=== PATIENT | female | born 1955 | race African-American/Black ===

== ENCOUNTER 2016-09-10 07:00 | Emergency (ER) | payer OTHER ==
[~2016-09-10] VITALS: Ht 162.6 cm; Wt 104.3 kg
[~2016-09-10 07:00] MED LIST: ACETAMINOPHEN-1 EAC1 ORAL; ALPRAZOLAM0.25 MG ORAL; AMLODIPINE BESY10 MG ORAL; ASPIRIN81 MG ORAL; ATORVASTATIN CA40 MG ORAL; CHOLESTYRAMINE378 GM PO; COLACE100 MG ORAL; CYCLOBENZAPRINE10 MG ORAL; GABAPENTIN300 MG ORAL; KLONOPIN0.5 MG ORAL; KLONOPIN1 MG ORAL; LEXAPRO20 MG ORAL; LIPITOR10 MG ORAL; LOSARTAN POTASS25 MG ORAL; LOSARTAN POTASS50 MG ORAL; METFORMIN HCL500 M1 ORAL; METOPROLOL TART50 M1; NAPROSYN250 M1 ORAL; NKM; NORCO 5-325 TA1 EACH ORAL; NORVASC5 MG ORAL; OMEPRAZOLE40 M1 ORAL; TRAZODONE HCL150 MG ORAL; ZOFRAN4 M1 ORAL
[2016-09-10 07:11] VITALS: BP 157/72
[2016-09-10] MEDS ORDERED: TRAMADOL HCL50 MG ORAL (07:20)
[2016-09-10] MEDS ORDERED: Norco 5mg/325mg tab ORAL ONE (07:30)
[2016-09-10 07:50] VITALS: BP 145/75
--- NOTE | 2016-09-10 08:34 | Emergency Room Report ---
History of Present Illness General Chief Complaint: Pain Source: Patient Present Illness HPI 60-year-old female presents to ED for bilateral leg pain. States this is chronic leg pain which she's had for many years now. Patient states her pain medications at home are not helping. Pain is throbbing, 10 out of 10, radiating down both legs. No other aggravating relieving factors. States the pain is so bad she cannot walk today so she called 911. Denies any other associated symptoms Allergies: Coded Allergies: IBUPROFEN (Unverified Allergy, Unknown, 04/27/14) Mushroom (Verified Allergy, Unknown, 10/15/14) PENICILLINS (Unverified Allergy, Unknown, 04/27/14) Uncoded Allergies: PENICILLIN (Allergy, Unknown, 08/24/15) Patient History Past Medical History: none, DM, HTN, CVA/TIA Past Surgical History: none Pertinent Family History: none Social History: Denies: alcohol use, drug use, smoking Now: No Immunizations: UTD Reviewed Nursing Documentation: PMH: Agreed, PSxH: Agreed Nursing Documentation-PMH Hx Hypertension: Yes Hx Pacemaker: No - HYPERLIPIDEMIA Hx Asthma: No Hx COPD: No Hx Diabetes: Yes Hx Cancer: No Hx Gastrointestinal Problems: Yes Hx Dialysis: No Hx Neurological Problems: Yes Hx Cerebrovascular Accident: Yes - TIA Hx Seizures: No Hx Headaches: Yes Hx Numbness: Yes Hx Weakness: Yes Review of Systems All Other Systems: negative except mentioned in HPI Physical Exam Vital Signs Date Time Temp Pulse Resp B/P Pulse Ox O2 Delivery O2 Flow Rate FiO2 09/10/16 06:55 97.2 101 15 157/72 97 Room Air Sp02 EP Interpretation: reviewed, normal General Appearance: no apparent distress, alert, GCS 15, non-toxic, obese Head: normocephalic Eyes: bilateral eye PERRL, bilateral eye normal inspection ENT: normal ENT inspection Neck: normal inspection Respiratory: normal inspection Cardiovascular #1: normal inspection Gastrointestinal: normal inspection Rectal: deferred Genitourinary: no CVA tenderness Musculoskeletal: tender - bilateral knees. full ROM noted. no bruising/ deformity Neurologic: alert, oriented x3, responsive, motor strength/tone normal, sensory intact, speech normal Psychiatric: normal inspection Skin: normal inspection Lymphatic: normal inspection Medical Decision Making Diagnostic Impression: Primary Impression: Chronic pain Qualified Codes: G89.29 - Other chronic pain ER Course 60-year-old female presents ED complaining of bilateral knee and leg pain. Differential-opioid dependence, chronic pain, arthritis Patient placed on stretcher. After initial history and physical I reviewed EMR ; patient has multiple visits to this ER for pain-related complaints. I reviewed [facility] patient does have multiple narcotic prescriptions but none filled in last 2 months. Agreed to provide patient with medication here-given 2 [place] Patient will be prescribed short course of tramadol however explaining to the patient that the ER is not an appropriate place to get chronic pain medications. Patient stated that she should followup with PMD/pain management Diagnoses-chronic pain Stable and discharged home with prescription for tramadol. Followup with PMD. Return to ED if symptoms recur worse Last Vital Signs Date Time Temp Pulse Resp B/P Pulse Ox O2 Delivery O2 Flow Rate FiO2 09/10/16 07:50 94 16 145/75 98 Room Air 09/10/16 07:11 97.2 Status: improved Disposition: HOME, SELF-CARE Condition: Stable Scripts Tramadol Hcl* (ULTRAM*) 50 Mg Tablet 50 MG ORAL Q6H Y for For Pain, #20 TAB 0 Refills Prov: CORIE MULLER M.D. 09/10/16 Referrals: [facility] (PCP) Patient Instructions: Chronic Pain CORIE MULLER M.D. Sep 10, 2016 08:34
== END 2016-09-10 08:59 | disposition home or self-care (01) ==
LOC: EDBD 07:00 → EMR 07:20
DX: G89.29 Other chronic pain (principal); M79.604 Pain in right leg; Z88.6 Allergy status to analgesic agent; Z88.0 Allergy status to penicillin; Z91.018 Allergy to other foods; I10 Essential (primary) hypertension; E11.9 Type 2 diabetes mellitus without complications; Z86.73 Personal history of transient ischemic attack (TIA), and cerebral infarction without residual deficits
CPT/HCPCS: 99283

== ENCOUNTER 2017-06-01 09:20 | Emergency (ER) | payer OTHER ==
[~2017-06-01] VITALS: Ht 162.6 cm; Wt 81.6 kg
[~2017-06-01 09:20] MED LIST changes: +TRAMADOL HCL50 MG ORAL
[2017-06-01] MEDS ORDERED: Sodium Chloride 500ML 500 ML IV ONE (09:25)
[2017-06-01] MEDS ORDERED: Morphine Sulfate 4mg/ml Inj IVP ONE (09:30)
[2017-06-01] MEDS ORDERED: Aspirin Baby 81mg ORAL ONE (09:30)
[2017-06-01] MEDS ORDERED: NORVASC2.5 MG ORAL (09:36)
[2017-06-01] MEDS ORDERED: NEURONTIN300 MG ORAL (09:37)
[2017-06-01] MEDS ORDERED: PREDNISOLO15 MG/5 M1 ORAL (09:37)
[2017-06-01] MEDS ORDERED: PAXIL30 MG ORAL (09:38)
[2017-06-01] MEDS ORDERED: TRAMADOL HCL100 M2 ORAL (09:38)
[2017-06-01] MEDS ORDERED: ATORVASTATIN CA10 MG ORAL (09:39)
[2017-06-01] MEDS ORDERED: AMOXIL250 MG ORAL (09:39)
[2017-06-01 09:53] LABS: BASOPHILS % (AUTO) 1.2 % (0.0-2.0); EOSINOPHILS % (AUTO) 1.2 % (0.0-3.0); LYMPHOCYTES % (AUTO) 20.9 % (20.0-45.0); MEAN CORPUSCULAR HEMOGLOBIN 27.8 PG (27.0-31.0); MEAN CORPUSCULAR HGB CONC 31.9 G/DL (32.0-36.0); MEAN CORPUSCULAR VOLUME 87 FL (80-99); MEAN PLATELET VOLUME 6.9 FL (6.5-10.1); MONOCYTES % (AUTO) 6.5 % (1.0-10.0); NEUTROPHILS % (AUTO) 70.2 % (45.0-75.0); PLATELET COUNT 282 K/UL (150-450); RED BLOOD COUNT 4.84 M/UL (4.20-5.40); RED CELL DISTRIBUTION WIDTH 13.7 % (11.6-14.8)
--- NOTE | 2017-06-01 09:54 | Emergency Room Report ---
History of Present Illness General Chief Complaint: Chest Pain Source: Patient, EMS Present Illness HPI Patient presents with complaints of midsternal chest pain Ongoing since this morning Patient denies any exacerbating or alleviating factors Denies any shortness of breath Reports that her pain came on suddenly Denies any pleurisy pain is 6/10 heaviness denies any radiation to the back Patient has gout of both knees Allergies: Coded Allergies: ESTRADIOL (Unverified Allergy, Unknown, 06/01/17) IBUPROFEN (Unverified Allergy, Unknown, 04/27/14) Mushroom (Verified Allergy, Unknown, 10/15/14) PENICILLINS (Unverified Allergy, Unknown, 04/27/14) Uncoded Allergies: PENICILLIN (Allergy, Unknown, 08/24/15) Patient History Past Medical History: see triage record Pertinent Family History: none Reviewed Nursing Documentation: PMH: Agreed, PSxH: Agreed Nursing Documentation-PMH Hx Hypertension: Yes Hx Pacemaker: No - HYPERLIPIDEMIA Hx Asthma: No Hx COPD: No Hx Diabetes: Yes Hx Cancer: No Hx Gastrointestinal Problems: Yes Hx Dialysis: No Hx Neurological Problems: Yes Hx Cerebrovascular Accident: Yes - TIA Hx Seizures: No Hx Headaches: Yes Hx Numbness: Yes Hx Weakness: Yes Review of Systems All Other Systems: negative except mentioned in HPI Physical Exam Vital Signs Date Time Temp Pulse Resp B/P (MAP) Pulse Ox O2 Delivery O2 Flow Rate FiO2 06/01/17 09:17 Room Air Sp02 EP Interpretation: reviewed, normal General Appearance: mild distress - in pain Head: normocephalic, atraumatic Eyes: bilateral eye PERRL, bilateral eye EOMI ENT: hearing grossly normal, normal pharynx, TMs + canals normal, uvula midline Neck: full range of motion, supple, no meningismus, no bony tend Respiratory: lungs clear, normal breath sounds, no rhonchi, no respiratory distress, no retraction, no accessory muscle use Cardiovascular #1: normal peripheral pulses, no edema, no gallop, no JVD, no murmur, tachycardia Gastrointestinal: normal bowel sounds, non tender, soft, no mass, no organomegaly, non-distended, no guarding, no hernia, no pulsatile mass, no rebound Genitourinary: no CVA tenderness Musculoskeletal: other - Chronic pain of bilateral knees pain with any movement Neurologic: oriented x3, responsive, member service specialist III-XII nml as tested, sensory intact Psychiatric: mood/affect normal Skin: normal color, no rash, warm/dry, palpation normal Lymphatic: normal inspection, no adenopathy Medical Decision Making Diagnostic Impression: Primary Impression: ACS (acute coronary syndrome) ER Course Patient is a fairly complex patient with multiple differential to consideration including but not limited to cardiac cardiopulmonary and vascular emergencies Patient's blood work appears appropriate pain has done better no obvious signs of ST elevation and the patient is stable for close followup secondary to insurance purposes patient was transferred Labs Test 06/01/17 09:38 White Blood Count 12.0 K/UL (4.8-10.8) Red Blood Count 4.84 M/UL (4.20-5.40) Hemoglobin 13.4 G/DL (12.0-16.0) Hematocrit 42.2 % (37.0-47.0) Mean Corpuscular Volume 87 FL (80-99) Mean Corpuscular Hemoglobin 27.8 PG (27.0-31.0) Mean Corpuscular Hemoglobin Concent 31.9 G/DL (32.0-36.0) Red Cell Distribution Width 13.7 % (11.6-14.8) Platelet Count 282 K/UL (150-450) Mean Platelet Volume 6.9 FL (6.5-10.1) Neutrophils (%) (Auto) 70.2 % (45.0-75.0) Lymphocytes (%) (Auto) 20.9 % (20.0-45.0) Monocytes (%) (Auto) 6.5 % (1.0-10.0) Eosinophils (%) (Auto) 1.2 % (0.0-3.0) Basophils (%) (Auto) 1.2 % (0.0-2.0) Sodium Level 142 MMOL/L (136-145) Potassium Level 3.3 MMOL/L (3.5-5.1) Chloride Level 103 MMOL/L (98-107) Carbon Dioxide Level 27 MMOL/L (21-32) Anion Gap 12 mmol/L (5-15) Blood Urea Nitrogen 10 mg/dL (7-18) Creatinine 1.0 MG/DL (0.55-1.30) Estimat Glomerular Filtration Rate > 60 mL/min (>60) Glucose Level 151 MG/DL (74-106) Calcium Level 9.4 MG/DL (8.5-10.1) Total Bilirubin 0.4 MG/DL (0.2-1.0) Aspartate Amino Transf (AST/SGOT) 14 U/L (15-37) Alanine Aminotransferase (ALT/SGPT) 15 U/L (12-78) Alkaline Phosphatase 91 U/L (46-116) Total Creatine Kinase 38 U/L (26-308) Creatine Kinase MB 1.3 NG/ML (0.0-3.6) Creatine Kinase MB Relative Index 3.4 Troponin I 0.000 ng/mL (0.000-0.056) Total Protein 7.5 G/DL (6.4-8.2) Albumin 3.4 G/DL (3.4-5.0) Globulin 4.1 g/dL Albumin/Globulin Ratio 0.8 (1.0-2.7) Lipase 162 U/L (73-393) EKG Diagnostic Results Rate: normal Rhythm: other ST Segments: other - Sinus tach, nonspecific ST and T-wave changes Rhythm Strip Diag. Results EP Interpretation: yes Rate: 92 Rhythm: NSR, no PVC's, no ectopy Chest X-Ray Diagnostic Results Chest X-Ray Diagnostic Results : Chest X-Ray Ordered: Yes # of Views/Limited/Complete: 1 View Indication: Chest Pain EP Interpretation: Yes Interpretation: no consolidation, no effusion, no pneumothorax Impression: No acute disease Electronically Signed by: DO Naveen Herrera Vital Signs Date Time Temp Pulse Resp B/P (MAP) Pulse Ox O2 Delivery O2 Flow Rate FiO2 06/01/17 09:17 Room Air Status: improved Disposition: XFER SHT-TRM HOSP Condition: Serious Referrals: [facility] (PCP) KAREN BARRETT D.O. Jun 01, 2017 09:54
[2017-06-01 10:02] VITALS: BP 163/80
[2017-06-01 10:06] LABS: ANION GAP 12 mmol/L (5-15); CALCIUM 9.4 MG/DL (8.5-10.1); CARBON DIOXIDE 27 MMOL/L (21-32); CHLORIDE 103 MMOL/L (98-107); GLOMERULAR FILTRATION RATE > 60 mL/min (>60); POTASSIUM 3.3 MMOL/L (3.5-5.1); SODIUM 142 MMOL/L (136-145)
[2017-06-01 10:18] LABS: ALANINE AMINOTRANSFERASE 15 U/L (12-78); ALBUMIN/GLOBULIN RATIO 0.8 (1.0-2.7); ASPARTATE AMINO TRANSFERASE 14 U/L (15-37); CKMB 1.3 NG/ML (0.0-3.6); LIPASE 162 U/L (73-393); TOTAL PROTEIN 7.5 G/DL (6.4-8.2)
--- NOTE | 2017-06-01 10:24 | Diagnostic Imaging Report ---
Indication: Chest pain Technique: XRAY CHEST 1 V Comparison: 08/24/15 Findings: Cardiomediastinal silhouette is stable. Atherosclerotic changes are seen. There is no consolidation or pleural effusion. Degenerative changes of the spine are noted. Impression: No acute cardiopulmonary disease.
[2017-06-01] MEDS ORDERED: Nitroglycerin 2% oint pkt TOPIC ONE (10:45)
[2017-06-01 10:53] VITALS: BP 177/78
[2017-06-01 11:23] VITALS: BP 148/85
[2017-06-01 11:25] VITALS: BP 148/85
--- NOTE | 2017-06-02 15:30 | Cardiology Report ---
APPROVED REPORT EKG Measurement Heart [id number] Sinus tachycardia Minimal voltage criteria for LVH, may be normal variant Anteroseptal infarct, age undetermined Abnormal ECG
== END 2017-06-01 11:30 | disposition short-term general hospital (02) ==
LOC: EDBD 09:20 → EMR 09:42
DX: I24.9 Acute ischemic heart disease, unspecified (principal); E78.5 Hyperlipidemia, unspecified; E11.9 Type 2 diabetes mellitus without complications; Z86.73 Personal history of transient ischemic attack (TIA), and cerebral infarction without residual deficits; I10 Essential (primary) hypertension; Z88.0 Allergy status to penicillin; Z88.6 Allergy status to analgesic agent
CPT/HCPCS: 36415; 71010; 80053; 82550; 82553; 83690; 84484; 85025; 93005; 96374; 96375; 99285; J2270; J2405; J7040